=== PATIENT | female | born 1955 | race Two or more races ===

== ENCOUNTER 2021-06-25 06:10 | Day surgery (SDC) | payer OTHER ==
[~2021-06-25 06:10] MED LIST: LEVOTHYROXINE25 MCG PO; METHOTREXATE2.5 MG PO
== END 2021-06-25 12:35 | disposition home or self-care (01) ==
LOC: CIR.AMB 06:10
PROVIDERS: ATTEND Orthopaedic Surgery Hand Surgery
DX: S61.216A Laceration without foreign body of right little finger without damage to nail, initial encounter (principal); Z20.822 Contact with and (suspected) exposure to COVID-19